=== PATIENT | female | born 1955 | race Caucasian/White ===

== ENCOUNTER 2017-08-21 07:30 | Day surgery (SDC) | payer MEDICAID ==
[2017-08-19 17:32] VITALS: BMI 29.2
[~2017-08-21 07:30] MED LIST: LACTATED RINGERS 1,000 ML IV SCH; LIDOCAINE 1% 20 ML VIAL (10MG/ML) FOR IV START INTRADERMA PRN
[2017-08-21 07:42] VITALS: RESP 18; TEMP 98
[2017-08-21] MEDS ORDERED: LACTATED RINGERS 1,000 ML IV ONE (07:43)
[2017-08-21] MEDS ORDERED: LIDOCAINE 1% 20 ML VIAL (10MG/ML) FOR IV START INTRADERMA ONE (07:44)
[2017-08-21] MEDS ORDERED: LIDOCAINE 1% INJ 10MG/ML (20 ML MDV) ONE (08:48)
[2017-08-21] MEDS ORDERED: PROPOFOL 10 MG/ML 20 ML VIAL IV ONE (08:48)
--- NOTE | 2017-08-21 09:04 | P.PCN ---
Date of Procedure: 08/21/17 Procedure(s) Performed: BRIEF HISTORY: Patient is a 62-year-old pleasant female, scheduled for an elective colonoscopy as a part of screening for colorectal neoplasia. PROCEDURE PERFORMED: Colonoscopy. PREOPERATIVE DIAGNOSIS: Screening for colon cancer. IV sedation per Anesthesia. PROCEDURE: After informed consent was obtained, the patient, was brought into the endoscopy unit. IV sedation was administered by Anesthesia under continuous monitoring. Digital rectal examination was normal. Initially the Olympus CF- 160 flexible video colonoscope was then inserted in the rectum, gradually advanced into the cecum without any difficulty. Careful examination was performed as the scope was gradually being withdrawn. Ileocecal valve and the appendiceal orifice were visualized and appeared normal. Prep was excellent. Mucosa of the cecum, ascending colon, transverse colon, descending colon, sigmoid colon, and rectum appeared normal. Retroflexion was performed in the rectum and no lesions were seen. The patient tolerated the procedure well. IMPRESSION: Normal-appearing colon from rectum to cecum with no evidence of colorectal neoplasia. RECOMMENDATIONS: Findings of this examination were discussed with the patient as well as her family. She was advised to have a repeat screening colonoscopy in 10 years.
[2017-08-21 09:31] VITALS: BP 131/74; PULSE 63
== END 2017-08-21 09:50 | disposition home or self-care (01) ==
LOC: ORWHC2ENDO 07:30
PROVIDERS: ATTEND Internal Medicine Gastroenterology
DX: Z12.11 Encounter for screening for malignant neoplasm of colon (principal); J45.909 Unspecified asthma, uncomplicated; K21.9 Gastro-esophageal reflux disease without esophagitis; Z79.01 Long term (current) use of anticoagulants; Z79.899 Other long term (current) drug therapy; Z88.2 Allergy status to sulfonamides
CPT/HCPCS: J2001; J2704; G0121

== ENCOUNTER → 2017-10-08 | Outpatient (CLI) | payer MEDICAID ==
[2017-10-08 07:56] LABS: Basophils # (A) 0.1 k/uL (0-0.2); Basophils % (A) 1 %; CH 26.9; Eosinophils # (A) 0.5 k/uL (0-0.7); Eosinophils % (A) 6 %; HCT 43.7 % (34.0-46.0); HDW 2.32; HGB 13.4 gm/dL (11.4-16.0); Hypochromasia Slight; Luc # (Auto) 0.13; Luc % (Auto) 2; Lymphocytes # (A) 2.8 k/uL (1.0-4.8); Lymphocytes % (A) 34 %; MCH 26.8 pg (25.0-35.0); MCHC 30.7 g/dL (31.0-37.0); MCV 87.4 fL (80.0-100.0); Mean Platelet Volume 7.4; Monocytes # (A) 0.7 k/uL (0-1.0); Monocytes % (A) 8 %; Neutrophils % (A) 49 %; WBC 8.1 k/uL (3.8-10.6); WBC (Perox) 7.95
[2017-10-08 08:08] LABS: ALT 32 U/L (9-52); AST 23 U/L (14-36); Alkaline Phosphatase 60 U/L (38-126); Anion Gap 8 mmol/L; Blood Urea Nitrogen 13 mg/dL (7-17); Calcium 9.2 mg/dL (8.4-10.2); Carbon Dioxide 28 mmol/L (22-30); Chloride 107 mmol/L (98-107); Cholesterol 159 mg/dL (<200); Glucose 81 mg/dL (74-99); HDL Cholesterol 59 mg/dL (40-60); Non-African American GFR(MDRD) >60 (>60 ml/min/1.73 sqM); Potassium 4.4 mmol/L (3.5-5.1); Sodium 143 mmol/L (137-145); Total Bilirubin 0.6 mg/dL (0.2-1.3); Total Protein 7.2 g/dL (6.3-8.2)
== END | disposition home or self-care (01) ==
LOC: LABWHC1 06:46
PROVIDERS: ATTEND Internal Medicine
DX: Z00.00 Encounter for general adult medical examination without abnormal findings (principal); E78.5 Hyperlipidemia, unspecified
CPT/HCPCS: 36415; 80053; 80061; 84439; 84443; 85025

== ENCOUNTER → 2018-11-11 | Outpatient (CLI) | payer MEDICAID ==
--- NOTE | 2018-11-12 11:20 | MM ---
Reason for exam: screening (asymptomatic). Last mammogram was performed 1 year and 3 months ago. History: Patient is postmenopausal. Benign right mammotome panel of the right breast, September 22, 2012. Took hormonal contraceptives for 5 years. Physical Findings: A clinical breast exam by your physician is recommended on an annual basis and results should be correlated with mammographic findings. MG 3D Screening Mammo W/Cad Bilateral CC and MLO view(s) were taken. Prior study comparison: August 20, 2017, bilateral MG 3d screening mammo w/cad. February 27, 2016, bilateral MG screening mammo w CAD. There are scattered fibroglandular densities. No significant changes when compared with prior studies. ASSESSMENT: Benign, BI-RAD 2 RECOMMENDATION: Routine screening mammogram of both breasts in 1 year.
--- NOTE | 2018-11-12 16:52 | BD ---
EXAMINATION TYPE: Axial Bone Density DATE OF EXAM: 11/11/2018 COMPARISON: NONE CLINICAL HISTORY: Height: 60 Weight: 159.4 FRAX RISK QUESTIONS: Alcohol (3 or more units per day): no Family History (Parent hip fracture): no Glucocorticoids (More than 3mos): no (Ex: prednisone, prednisolone, methylprednisolone, dexamethasone, and hydrocortisone). History of Fracture in Adulthood: no Secondary Osteoporosis: 1. Type 1 Diabetes: no 2. Hyperthyroidism: no 3. Menopause before 45: no 4. Malnutrition: no 5. Chronic liver disease: no Rheumatoid Arthritis: no Current Tobacco Use: no RISK FACTORS HISTORY OF: Family History of Osteoporosis: no Active: yes Diet low in dairy products/other sources of calcium: no Postmenopausal woman: age 56 MEDICATIONS: coumadin, singulair, simvastatin Additional History: EXAM MEASUREMENTS: Bone mineral densitometry was performed using the [employer] System. Bone mineral density as measured about the Lumbar spine is: ----- L1-L4(G/cm2): 1.011 T Score Values are as follows: ----- L2: -1.8 ----- L3: -1.0 ----- L4: -1.8 ----- L1-L4: -1.4 Bone mineral density has: decreased -5.8 % since study of: 08.30.2012 Bone mineral density about the R hip (g/cm2): 0.889 Bone mineral density about the L hip (g/cm2): T Score values are as follows: -----R Neck: -1.1 -----L Neck: -0.6 -----R Total: -0.4 -----L Total: -0.5 Bone mineral density has: decreased -3.7 % since study of: 08.30.2012 IMPRESSION: Osteopenia (T Score between -2.5 and -1). There is slightly increased risk of fracture and the patient may be considered for treatment. Re-Screen 2-5 years. NOTE: T-SCORE=SD OF THE YOUNG ADULT MEAN.
== END | disposition home or self-care (01) ==
LOC: RADBDWWP 16:15
PROVIDERS: ATTEND Obstetrics & Gynecology
DX: Z12.31 Encounter for screening mammogram for malignant neoplasm of breast (principal); M85.80 Other specified disorders of bone density and structure, unspecified site; Z78.0 Asymptomatic menopausal state
CPT/HCPCS: 77063; 77067; 77080

== ENCOUNTER 2019-03-11 18:24 | Emergency (ER) | payer MEDICAID ==
[2019-03-11 19:00] VITALS: TEMP 98.2
[2019-03-11] MEDS ORDERED: SODIUM CHLORIDE 0.9% 1,000 ML IV STA (19:33)
[2019-03-11 19:52] LABS: Basophils # (A) 0.1 k/uL (0-0.2); Basophils % (A) 1 %; Eosinophils # (A) 0.4 k/uL (0-0.7); Eosinophils % (A) 4 %; HCT 46.2 % (34.0-46.0); HGB 14.2 gm/dL (11.4-16.0); Lymphocytes # (A) 3.5 k/uL (1.0-4.8); Lymphocytes % (A) 32 %; MCH 27.3 pg (25.0-35.0); MCHC 30.7 g/dL (31.0-37.0); MCV 88.9 fL (80.0-100.0); Mean Platelet Volume 6.9; Monocytes # (A) 0.6 k/uL (0-1.0); Monocytes % (A) 6 %; Neutrophils % (A) 56 %; Platelet Count 435 k/uL (150-450); RDW 13.7 % (11.5-15.5); WBC 10.8 k/uL (3.8-10.6)
--- NOTE | 2019-03-11 20:00 | ED ---
Abdominal Pain HPI - General Source: patient Mode of arrival: ambulatory Limitations: no limitations <Rizwana Beck - Last Filed: 03/11/19 21:50> <Ina White - Last Filed: 03/12/19 06:38> - General Chief Complaint: Abdominal Pain Stated Complaint: ABDOMINAL PAIN Time Seen by Provider: 03/11/19 19:01 - History of Present Illness Initial Comments: 63-year-old female patient presents to the emergency department today for evaluation of lower abdominal pain. Patient states that over the last couple of days she has been having suprapubic cramping, dysuria, and frequency of urination. Patient states she was seen and evaluated at urgent care, states her urinalysis was negative for any evidence of infection. States that exam she has significant tenderness to the lower abdomen so she was urged to come to the emergency department for further evaluation. Patient denies any difficulty with bowel movements. Denies any fevers or chills. Denies any vomiting or diarrhea. States that she has had no abdominal surgeries in the past. Patient denies any recent rash, shortness breath, chest pain, nausea, vomiting, diarrhea, constipation, back pain, numbness, tingling, dizziness, weakness, headache, v isual changes, or any other complaints. (Rizwana Beck) - Related Data Home Medications Medication Instructions Recorded Confirmed Montelukast [Singulair] 10 mg PO HS 08/19/17 03/11/19 Warfarin [Coumadin] 5 mg PO SUMOTUWETHFR@1800 08/19/17 03/11/19 Warfarin [Coumadin] 7.5 mg PO SA@1800 08/19/17 03/11/19 Fexofenadine HCl [Peyton Allergy] 180 mg PO HS 03/11/19 03/11/19 Previous Rx's Medication Instructions Recorded Amoxic-Pot Clav 875-125Mg 1 tab PO Q12HR #20 tablet 03/11/19 [Augmentin 875-125] Allergies Allergy/AdvReac Type Severity Reaction Status Date / Time codeine AdvReac Nausea & Verified 03/11/19 20:28 Vomiting Sulfa (Sulfonamide AdvReac MAKES HER Verified 03/11/19 20:28 Antibiotics) JITTERY Review of Systems ROS Other: All systems not noted in ROS Statement are negative. <Rizwana Beck - Last Filed: 03/11/19 21:50> ROS Other: All systems not noted in ROS Statement are negative. <Alfonzo Whitessserena Pappas - Last Filed: 03/12/19 06:38> ROS Statement: Those systems with pertinent positive or pertinent negative responses have been documented in the HPI. Past Medical History Past Medical History: Asthma, Hyperlipidemia Additional Past Medical History / Comment(s): HX PE DVT History of Any Multi-Drug Resistant Organisms: None Reported Past Surgical History: No Surgical Hx Reported Past Psychological History: No Psychological Hx Reported Smoking Status: Former smoker Past Alcohol Use History: None Reported Past Drug Use History: None Reported <Rizwana Beck M - Last Filed: 03/11/19 21:50> General Exam Limitations: no limitations General appearance: alert, in no apparent distress, other (Physical well- developed, well-nourished adult female patient in no acute distress. Vital signs upon presentation are temperature 98.2F, pulse 74, respirations 20, blood pressure 119/65, pulse ox 98% on room air.) Eye exam: Present: normal appearance, PERRL, EOMI. Absent: scleral icterus, conjunctival injection, periorbital swelling ENT exam: Present: normal exam, normal oropharynx, mucous membranes moist Respiratory exam: Present: normal lung sounds bilaterally. Absent: respiratory distress, wheezes, rales, rhonchi, stridor Cardiovascular Exam: Present: regular rate, normal rhythm, normal heart sounds. Absent: systolic murmur, diastolic murmur, rubs, gallop, clicks GI/Abdominal exam: Present: soft, tenderness (Right lower and left lower quadrant tenderness), normal bowel sounds. Absent: distended, guarding, rebound, rigid Neurological exam: Present: alert, oriented X3, CN II-XII intact Psychiatric exam: Present: normal affect, normal mood Skin exam: Present: warm, dry, intact, normal color. Absent: rash <Rizwana Beck M - Last Filed: 03/11/19 21:50> Course Vital Signs 03/11/19 03/11/19 03/11/19 18:55 20:42 20:43 Temperature 98.2 F Pulse Rate 74 Respiratory 20 64 H Rate Blood Pressure 119/65 154/77 O2 Sat by Pulse 98 98 98 Oximetry 04/11/1703/11/19 03/11/19 20:50 21:10 21:45 Temperature Pulse Rate 77 Respiratory 18 16 Rate Blood Pressure 154/77 146/78 O2 Sat by Pulse 100 96 Oximetry Medical Decision Making - Lab Data Result diagrams: 03/11/19 19:39 03/11/19 19:39 - Radiology Data Radiology results: report reviewed, image reviewed <Rizwana Beck - Last Filed: 03/11/19 21:50> - Lab Data Result diagrams: 03/11/19 19:39 03/11/19 19:39 <Ina White - Last Filed: 03/12/19 06:38> - Medical Decision Making 63-year-old female patient presents to the emergency department today for evaluation of abdominal tenderness. Patient having urinary symptoms for the last couple of days and did present to urgent care today. Upon physical exam she had significant tenderness to the lower abdomen was sent here for further evaluation. Physical examination did reveal right lower and left lower quadrant tenderness including the suprapubic region. Labs reviewed and did reveal elevat ed white blood cell count at 10.8. A CT abdomen and pelvis was obtained with contrast didn't show evidence for mid sigmoid diverticulitis however mild at this time. Did discuss findings and results with the patient. Patient does feel comfortable being discharged home. She will be started on Augmentin. She is instructed to follow-up with her primary care physician for recheck in 1-2 days. Return parameters discussed in detail. She verbalizes understanding and agrees with this plan. (Rizwana Beck) I was available for consultation in the emergency department. The history and physical exam were done by the midlevel provider. I was consulted for this patient's care. I reviewed the case with the midlevel provider and based on their presentation of the patient, I agree with the assessment, medical decision making and plan of care as documented. (Ina White) - Lab Data Lab Results 03/11/19 03/11/19 03/11/19 Range/Units 19:39 19:39 19:39 WBC 10.8 H (3.8-10.6) k/uL RBC 5.20 (3.80-5.40) m/uL Hgb 14.2 (11.4-16.0) gm/dL Hct 46.2 H (34.0-46.0) % MCV 88.9 (80.0-100.0) fL MCH 27.3 (25.0-35.0) pg MCHC 30.7 L (31.0-37.0) g/dL RDW 13.7 (11.5-15.5) % Plt Count 435 (150-450) k/uL Neutrophils % 56 % Lymphocytes % 32 % Monocytes % 6 % Eosinophils % 4 % Basophils % 1 % Neutrophils # 6.0 (1.3-7.7) k/uL Lymphocytes # 3.5 (1.0-4.8) k/uL Monocytes # 0.6 (0-1.0) k/uL Eosinophils # 0.4 (0-0.7) k/uL Basophils # 0.1 (0-0.2) k/uL Sodium 139 (137-145) mmol/L Potassium 3.9 (3.5-5.1) mmol/L Chloride 104 (98-107) mmol/L Carbon Dioxide 27 (22-30) mmol/L Anion Gap 8 mmol/L BUN 13 (7-17) mg/dL Creatinine 0.53 (0.52-1.04) mg/dL Est GFR (CKD-EPI)AfAm >90 (>60 ml/min/1.73 sqM) Est GFR (CKD-EPI)NonAf >90 (>60 ml/min/1.73 sqM) Glucose 98 (74-99) mg/dL Plasma Lactic Acid Danny 0.9 (0.7-2.0) mmol/L Calcium 10.0 (8.4-10.2) mg/dL Total Bilirubin 0.7 (0.2-1.3) mg/dL AST 24 (14-36) U/L ALT 29 (9-52) U/L Alkaline Phosphatase 76 (38-126) U/L Total Protein 7.9 (6.3-8.2) g/dL Albumin 4.7 (3.5-5.0) g/dL Amylase 41 (30-110) U/L Lipase 85 (23-300) U/L Urine Color Urine Appearance (Clear) Urine pH (5.0-8.0) Ur Specific [place] (1.001-1.035) Urine Protein (Negative) Urine Glucose (UA) (Negative) Urine Ketones (Negative) Urine Blood (Negative) Urine Nitrite (Negative) Urine Bilirubin (Negative) Urine Urobilinogen (<2.0) mg/dL Ur Leukocyte Esterase (Negative) Urine WBC (0-5) /hpf Ur Squamous Epith Cells (0-4) /hpf Urine Mucus (None) /hpf 03/11/19 Range/Units 19:39 WBC (3.8-10.6) k/uL RBC (3.80-5.40) m/uL Hgb (11.4-16.0) gm/dL Hct (34.0-46.0) % MCV (80.0-100.0) fL MCH (25.0-35.0) pg MCHC (31.0-37.0) g/dL RDW (11.5-15.5) % Plt Count (150-450) k/uL Neutrophils % % Lymphocytes % % Monocytes % % Eosinophils % % Basophils % % Neutrophils # (1.3-7.7) k/uL Lymphocytes # (1.0-4.8) k/uL Monocytes # (0-1.0) k/uL Eosinophils # (0-0.7) k/uL Basophils # (0-0.2) k/uL Sodium (137-145) mmol/L Potassium (3.5-5.1) mmol/L Chloride (98-107) mmol/L Carbon Dioxide (22-30) mmol/L Anion Gap mmol/L BUN (7-17) mg/dL Creatinine (0.52-1.04) mg/dL Est GFR (CKD-EPI)AfAm (>60 ml/min/1.73 sqM) Est GFR (CKD-EPI)NonAf (>60 ml/min/1.73 sqM) Glucose (74-99) mg/dL Plasma Lactic Acid Danny (0.7-2.0) mmol/L Calcium (8.4-10.2) mg/dL Total Bilirubin (0.2-1.3) mg/dL AST (14-36) U/L ALT (9-52) U/L Alkaline Phosphatase (38-126) U/L Total Protein (6.3-8.2) g/dL Albumin (3.5-5.0) g/dL Amylase (30-110) U/L Lipase (23-300) U/L Urine Color Yellow Urine Appearance Clear (Clear) Urine pH 5.0 (5.0-8.0) Ur Specific [place] 1.014 (1.001-1.035) Urine Protein Negative (Negative) Urine Glucose (UA) Negative (Negative) Urine Ketones 1+ H (Negative) Urine Blood Negative (Negative) Urine Nitrite Negative (Negative) Urine Bilirubin Negative (Negative) Urine Urobilinogen <2.0 (<2.0) mg/dL Ur Leukocyte Esterase Small H (Negative) Urine WBC 10 H (0-5) /hpf Ur Squamous Epith Cells <1 (0-4) /hpf Urine Mucus Occasional H (None) /hpf - Radiology Data CT abdomen and pelvis with contrast was obtained. Report was reviewed in its entirety. Impression by Dr. Pace shows evidence of mild mid sigmoid diverticulitis. Normal appendix. (Rizwana Beck) Disposition Is patient prescribed a controlled substance at d/c from ED?: No Time of Disposition: 21:31 <Rizwana Beck - Last Filed: 03/11/19 21:50> <Ina White - Last Filed: 03/12/19 06:38> Clinical Impression: Diverticulitis Disposition: HOME SELF-CARE Condition: Good Instructions (If sedation given, give patient instructions): Diverticulitis (ED), Diverticulitis Diet (ED) Additional Instructions: Complete antibiotic prescriptions in full. Follow-up with your primary care physician for recheck in 1-2 days. Return to the emergency department immediately for any new, worsening, or concerning symptoms. Prescriptions: Amoxic-Pot Clav 875-125Mg [Augmentin 875-125] 1 tab PO Q12HR #20 tablet Referrals: Melchor Meek MD [Primary Care Provider] - 1-2 days
[2019-03-11 20:01] LABS: ALT 29 U/L (9-52); AST 24 U/L (14-36); Albumin 4.7 g/dL (3.5-5.0); Alkaline Phosphatase 76 U/L (38-126); Amylase 41 U/L (30-110); Anion Gap 8 mmol/L; Blood Urea Nitrogen 13 mg/dL (7-17); Carbon Dioxide 27 mmol/L (22-30); Chloride 104 mmol/L (98-107); Glucose 98 mg/dL (74-99); Lipase 85 U/L (23-300); Potassium 3.9 mmol/L (3.5-5.1); Sodium 139 mmol/L (137-145); Total Bilirubin 0.7 mg/dL (0.2-1.3); Total Protein 7.9 g/dL (6.3-8.2)
[2019-03-11 20:05] LABS: Appearance,Urine Clear (Clear); Bilirubin,Urine Negative (Negative); Blood,Urine Negative (Negative); Color,Urine Yellow; Glucose,Urine (UA) Negative (Negative); Ketones,Urine 1+ (Negative); Leukocyte Esterase,Urine Small (Negative); Mucus,Urine Occasional /hpf; Nitrite,Urine Negative (Negative); Protein,Urine Negative (Negative); Specific Gravity,Urine 1.014 (1.001-1.035); Squamous Epithelial Cell,Urine <1 /hpf (0-4); Urobilinogen,Urine <2.0 mg/dL (<2.0); WBC,Urine 10 /hpf (0-5)
--- NOTE | 2019-03-11 21:10 | CT ---
EXAMINATION TYPE: CT abdomen pelvis w con DATE OF EXAM: 03/11/2019 COMPARISON: 10/16/2011 HISTORY: Abdominal pain upon palpation CT DLP: 880 mGycm Automated exposure control for dose reduction was used. TECHNIQUE: Helical acquisition of images was performed from the lung bases through the pelvis. CONTRAST: Performed without Oral Contrast and with IV Contrast, patient injected with 100 mL of Isovue 300. FINDINGS: Lung bases are clear. There is no pleural effusion. Heart size is normal. There is no pericardial eff usion. Liver spleen pancreas stomach appear normal. Bile ducts are not dilated. Gallbladder appears n ormal. There is no adrenal mass. Kidneys show satisfactory contrast opacification. There is no hydronephrosi s. Bladder distends smoothly. There is no retroperitoneal adenopathy. Ureters are not dilated. Uterus is normal in size and contour. There is no evidence of a pelvic mass. There is fat stranding around the mid sigmoid colon. There are multiple sigmoid diverticula. The appe ndix appears normal. There is no sign of free air. There is no ascites. There is no dilated bowel. The bony structures jose ear intact. There is a minimal L4-5 degenerative spondylolisthesis. There is a broad-based posterior L5-S1 lumbar disc herniation. IMPRESSION: THERE IS EVIDENCE OF MILD MID SIGMOID DIVERTICULITIS. NORMAL APPENDIX.
[2019-03-11 21:14] VITALS: BP 146/78; RESP 16
[2019-03-11] MEDS ORDERED: AMOXIC-POT CLAV 875MG STARTER 2 EACH TABLET PO STA (21:31)
[2019-03-11 21:47] VITALS: PULSE 77
== END 2019-03-11 21:45 | disposition home or self-care (01) ==
LOC: EC 18:24
DX: K57.92 Diverticulitis of intestine, part unspecified, without perforation or abscess without bleeding (principal); D72.829 Elevated white blood cell count, unspecified; R30.0 Dysuria; R35.0 Frequency of micturition; J45.909 Unspecified asthma, uncomplicated; Z86.718 Personal history of other venous thrombosis and embolism; Z87.891 Personal history of nicotine dependence; Z86.711 Personal history of pulmonary embolism; Z79.01 Long term (current) use of anticoagulants; Z79.899 Other long term (current) drug therapy; Z88.5 Allergy status to narcotic agent; Z88.2 Allergy status to sulfonamides
CPT/HCPCS: 99284; 96360; 36415; 80053; 82150; 83605; 83690; 85025; 81001; 74177; Q9967

== ENCOUNTER 2019-09-25 09:30 | Emergency (ER) | payer MEDICAID ==
[2019-09-25] MEDS ORDERED: SODIUM CHLORIDE 0.9% 500 ML 500 ML IV STA ×2 (09:59→11:38)
[2019-09-25] MEDS ORDERED: METOCLOPRAMIDE 5 MG/ML 2 ML VIAL IVP STA (09:59)
[2019-09-25] MEDS ORDERED: MORPHINE SULFATE 4 MG/ML SYRINGE IV STA (09:59)
--- NOTE | 2019-09-25 10:04 | ED ---
General Adult HPI - General Chief complaint: Headache Stated complaint: Headache Time Seen by Provider: 09/25/19 09:50 Source: patient, family, RN notes reviewed Mode of arrival: ambulatory Limitations: no limitations - History of Present Illness Initial comments: Patient is a pleasant [age]-year-old female presenting to the emergency Department with headache. Onset of symptoms was yesterday. Rate was gradual onset and has been aggressively worsened since that time. Headache is starting to become severe. Patient does have some occasional migraine headaches however usually they're not very severe , and more frontal. This headache is more left posterior. Patient has mild nausea at times. Patient has mild photophobia times. No visual change. No trauma. Patient did develop a rash 5 or 6 days ago. Patient did see her doctor 3 days ago and was started on Valtrex with diagnosis of shingles. Area affected is left chest and does wrap around posteriorly to the left back. No rash involved in the neck or scalp. Patient states rash is burning and somewhat painful. No fevers. Patient states she is having some muscle spasms in the left back that seemed to be radiating up to the head and patient questions if this is causing her headache. - Related Data Home Medications Medication Instructions Recorded Confirmed Montelukast [Singulair] 10 mg PO HS 08/19/17 09/25/19 Warfarin [Coumadin] 5 mg PO SUTUTHFR@1800 08/19/17 09/25/19 Warfarin [Coumadin] 7.5 mg PO MOWESA@1800 08/19/17 09/25/19 Fexofenadine HCl [Peyton Allergy] 180 mg PO HS 03/11/19 09/25/19 Acetaminophen Tab [Tylenol Tab] 650 mg PO Q4H PRN 09/25/19 09/25/19 Hydrocortisone Cream 1 applic TOPICAL BID PRN 09/25/19 09/25/19 [Hydrocortisone 1% Cream] Simvastatin [Zocor] 10 mg PO HS 09/25/19 09/25/19 valACYclovir HCL [Valtrex] 1,000 mg PO TID 09/25/19 09/25/19 Previous Rx's Medication Instructions Recorded predniSONE 20 mg PO BID #10 tab 09/25/19 Allergies Allergy/AdvReac Type Severity Reaction Status Date / Time codeine AdvReac Nausea & Verified 09/25/19 10:09 Vomiting Sulfa (Sulfonamide AdvReac MAKES HER Verified 09/25/19 10:09 Antibiotics) OLEG Review of Systems ROS Statement: Those systems with pertinent positive or pertinent negative responses have been documented in the HPI. ROS Other: All systems not noted in ROS Statement are negative. Constitutional: Denies: fever Eyes: Reports: as per HPI ENT: Denies: ear pain Respiratory: Denies: cough, dyspnea Cardiovascular: Denies: chest pain Endocrine: Denies: fatigue Gastrointestinal: Denies: abdominal pain Genitourinary: Denies: dysuria Musculoskeletal: Reports: as per HPI Skin: Reports: as per HPI, rash Neurological: Reports: as per HPI, headache. Denies: weakness, confusion Past Medical History Past Medical History: Asthma, Hyperlipidemia Additional Past Medical History / Comment(s): HX PE DVT History of Any Multi-Drug Resistant Organisms: None Reported Past Surgical History: No Surgical Hx Reported Past Psychological History: No Psychological Hx Reported Smoking Status: Former smoker Past Alcohol Use History: None Reported Past Drug Use History: None Reported General Exam Limitations: no limitations General appearance: alert, in no apparent distress Head exam: Present: atraumatic, normocephalic, other (No tenderness over the temporal artery) Eye exam: Present: normal appearance, PERRL, EOMI. Absent: nystagmus ENT exam: Present: normal oropharynx Neck exam: Present: normal inspection. Absent: tenderness, meningismus Respiratory exam: Present: normal lung sounds bilaterally Cardiovascular Exam: Present: regular rate, normal rhythm GI/Abdominal exam: Present: soft. Absent: tenderness Extremities exam: Present: normal inspection Neurological exam: Present: alert, oriented X3, CN II-XII intact. Absent: motor sensory deficit Expanded Neurological exam: Present: protecting the airway Patient oriented to: Present: person, place, time Speech: Present: fluid speech Cranial nerves: EOM's Intact: Normal, Facial Sensation: Normal Sensory exam: Upper Extremity Light Touch: Normal, Lower Extremity Light Touch: Normal Motor strength exam: RUE: 5, LUE: 5, RLE: 5, LLE: 5 Eye Response: (4) open spontaneously Motor Response: (6) obeys commands Verbal Response: (5) oriented Psychiatric exam: Present: normal affect, normal mood Skin exam: Present: rash (Left lateral breast wrapping around to left thoracic back with erythema and crusting consistent with diagnosis of shingles.), other (No evidence of rash or shingles near the neck or any portion of the scalp her head or ears or eyes.) Course Vital Signs 09/25/19 09:34 Temperature 98.4 F Pulse Rate 98 Respiratory 20 Rate Blood Pressure 125/82 O2 Sat by Pulse 96 Oximetry Medical Decision Making - Medical Decision Making Patient was reevaluated early and still had discomfort. Patient right additional medication and again reevaluated. Patient states symptoms are improving and discomfort is tolerable. Patient is comfortable with discharge home. Patient updated on results and need for close follow-up with primary care physician. Patient does request a steroid prescription. - Lab Data Result diagrams: 09/25/19 10:09/25/19 10: Lab Results 09/25/19 09/25/19 09/25/19 Range/Units 10: 10: 10: WBC 6.7 (3.8-10.6) k/uL RBC 4.96 (3.80-5.40) m/uL Hgb 13.4 (11.4-16.0) gm/dL Hct 42.2 (34.0-46.0) % MCV 85.1 (80.0-100.0) fL MCH 27.0 (25.0-35.0) pg MCHC 31.7 (31.0-37.0) g/dL RDW 13.3 (11.5-15.5) % Plt Count 440 (150-450) k/uL Neutrophils % 52 % Lymphocytes % 32 % Monocytes % 6 % Eosinophils % 6 % Basophils % 1 % Neutrophils # 3.5 (1.3-7.7) k/uL Lymphocytes # 2.1 (1.0-4.8) k/uL Monocytes # 0.4 (0-1.0) k/uL Eosinophils # 0.4 (0-0.7) k/uL Basophils # 0.1 (0-0.2) k/uL ESR 25 H (0-20) mm/hr PT 15.1 H (9.0-12.0) sec INR 1.5 H (<1.2) APTT 35.9 H (22.0-30.0) sec Sodium 142 (137-145) mmol/L Potassium 4.2 (3.5-5.1) mmol/L Chloride 106 (98-107) mmol/L Carbon Dioxide 26 (22-30) mmol/L Anion Gap 10 mmol/L BUN 14 (7-17) mg/dL Creatinine 0.51 L (0.52-1.04) mg/dL Est GFR (CKD-EPI)AfAm >90 (>60 ml/min/1.73 sqM) Est GFR (CKD-EPI)NonAf >90 (>60 ml/min/1.73 sqM) Glucose 111 H (74-99) mg/dL Calcium 9.3 (8.4-10.2) mg/dL Total Bilirubin 0.4 (0.2-1.3) mg/dL AST 24 (14-36) U/L ALT 29 (9-52) U/L Alkaline Phosphatase 55 (38-126) U/L Total Protein 7.3 (6.3-8.2) g/dL Albumin 3.8 (3.5-5.0) g/dL - Radiology Data Radiology results: image reviewed (Computed tomography scan the brain shows no acute process) Disposition Clinical Impression: Headache, Shingles Disposition: HOME SELF-CARE Condition: Stable Instructions (If sedation given, give patient instructions): Acute Headache (ED), Shingles (ED) Additional Instructions: Please follow-up with primary care physician in the next day or 2 for recheck. Return for headache, confusion, weakness, fevers, worsening or changing symptoms or other concerns. Prescription has been sent to [facility] on Prescriptions: predniSONE 20 mg PO BID #10 tab Is patient prescribed a controlled substance at d/c from ED?: No Referrals: Melchor Meek MD [Primary Care Provider] - 1-2 days Time of Disposition: 13:22
[2019-09-25 10:48] LABS: Basophils # (A) 0.1 k/uL (0-0.2); Basophils % (A) 1 %; Eosinophils # (A) 0.4 k/uL (0-0.7); Eosinophils % (A) 6 %; HCT 42.2 % (34.0-46.0); HGB 13.4 gm/dL (11.4-16.0); Lymphocytes # (A) 2.1 k/uL (1.0-4.8); Lymphocytes % (A) 32 %; MCHC 31.7 g/dL (31.0-37.0); MCV 85.1 fL (80.0-100.0); Mean Platelet Volume 6.1; Monocytes # (A) 0.4 k/uL (0-1.0); Monocytes % (A) 6 %; Neutrophils # (A) 3.5 k/uL (1.3-7.7); Neutrophils % (A) 52 %; Platelet Count 440 k/uL (150-450); RBC 4.96 m/uL (3.80-5.40); RDW 13.3 % (11.5-15.5); WBC 6.7 k/uL (3.8-10.6)
[2019-09-25 10:50] LABS: ALT 29 U/L (9-52); AST 24 U/L (14-36); African American GFR (CKD) >90 (>60 ml/min/1.73 sqM); Albumin 3.8 g/dL (3.5-5.0); Alkaline Phosphatase 55 U/L (38-126); Anion Gap 10 mmol/L; Blood Urea Nitrogen 14 mg/dL (7-17); Calcium 9.3 mg/dL (8.4-10.2); Carbon Dioxide 26 mmol/L (22-30); Chloride 106 mmol/L (98-107); Glucose 111 mg/dL (74-99); INR 1.5 (<1.2); Partial Thromboplastin Time 35.9 sec (22.0-30.0); Potassium 4.2 mmol/L (3.5-5.1); Prothrombin Time 15.1 sec (9.0-12.0); Sodium 142 mmol/L (137-145); Total Bilirubin 0.4 mg/dL (0.2-1.3); Total Protein 7.3 g/dL (6.3-8.2)
--- NOTE | 2019-09-25 11:03 | CT ---
EXAMINATION TYPE: CT brain wo con DATE OF EXAM: 09/25/2019 COMPARISON: NONE HISTORY: Severe AGUIRRE CT DLP: 1058.4 mGycm Automated exposure control for dose reduction was used. FINDINGS: Central structures are midline. There is no evidence of hydrocephalus. No acute focal lesion, mass ef fect or midline shift seen. I do not see evidence blood. Visualized portions of the paranasal sinuses and mastoids are clear. The bony calvarium is intact. IMPRESSION: NO ACUTE INTRACRANIAL ABNORMALITY.
[2019-09-25 11:36] LABS: Erythrocyte Sedimentation Rate 25 mm/hr (0-20)
[2019-09-25] MEDS ORDERED: diphenhydrAMINE 50 MG/ML 1 ML VIAL IVP STA (11:38)
[2019-09-25] MEDS ORDERED: methylPREDNISolone SOD SUCCI 125 MG/2 ML VIAL IV STA (11:39)
[2019-09-25] MEDS ORDERED: traMADol 50 MG STARTER PACK 3 TAB BTL PO STA (13:21)
[2019-09-25 13:46] VITALS: BP 110/62; PULSE 69; RESP 18; TEMP 98.3
== END 2019-09-25 13:44 | disposition home or self-care (01) ==
LOC: EC 09:30
DX: B02.9 Zoster without complications (principal); R51 Headache; R11.0 Nausea; J45.909 Unspecified asthma, uncomplicated; E78.5 Hyperlipidemia, unspecified; Z79.01 Long term (current) use of anticoagulants; Z79.899 Other long term (current) drug therapy; Z88.2 Allergy status to sulfonamides; Z88.5 Allergy status to narcotic agent; Z87.891 Personal history of nicotine dependence; Z86.718 Personal history of other venous thrombosis and embolism; Z86.711 Personal history of pulmonary embolism
CPT/HCPCS: 99284; 96374; 96375 ×3; 96361; 36415; 80053; 85652; 85025; 85610; 85730; 70450; J2270; J1200; J2765; J2930

== ENCOUNTER → 2019-11-05 | Outpatient (CLI) | payer MEDICAID ==
[2019-11-05 10:13] LABS: Basophils # (A) 0.1 k/uL (0-0.2); Basophils % (A) 1 %; Eosinophils # (A) 0.2 k/uL (0-0.7); Eosinophils % (A) 2 %; HCT 41.5 % (34.0-46.0); HGB 13.4 gm/dL (11.4-16.0); Lymphocytes # (A) 2.5 k/uL (1.0-4.8); Lymphocytes % (A) 32 %; MCH 27.9 pg (25.0-35.0); MCHC 32.1 g/dL (31.0-37.0); MCV 86.8 fL (80.0-100.0); Mean Platelet Volume 6.4; Monocytes # (A) 0.5 k/uL (0-1.0); Monocytes % (A) 6 %; Neutrophils # (A) 4.5 k/uL (1.3-7.7); Neutrophils % (A) 57 %; Platelet Count 502 k/uL (150-450); RBC 4.78 m/uL (3.80-5.40); RDW 14.5 % (11.5-15.5); WBC 7.9 k/uL (3.8-10.6)
[2019-11-05 10:23] LABS: INR 2.3 (<1.2); Prothrombin Time 22.1 sec (9.0-12.0)
[2019-11-05 17:02] LABS: African American GFR (CKD) 112.4 (60.0-200.0); Albumin 4.2 g/dL (3.80-4.90); Albumin/Globulin Ratio 1.91 (1.60-3.17); Anion Gap 7.6 mmol/L (4.00-12.00); Carbon Dioxide 25.4 mmol/L (21.6-31.8); Chol/HDL Ratio 2.72; Globulin 2.2 g/dL (1.6-3.3); LDL Cholesterol,Calculated 74.6 mg/dL (0.0-131.0); Potassium 4.3 mmol/L (3.5-5.5); Total Bilirubin 0.7 mg/dL (0.3-1.2); Total Protein 6.4 g/dL (6.2-8.2); VLDL Calculation 16.4 mg/dL (5.00-40.00)
[2019-11-05 17:20] LABS: T4, Free (Free Thyroxine) 0.8 ng/dL (0.80-1.80)
== END | disposition home or self-care (01) ==
LOC: LABWHC1 09:11
PROVIDERS: ATTEND Internal Medicine
DX: Z00.00 Encounter for general adult medical examination without abnormal findings (principal)
CPT/HCPCS: 36415; 80053; 80061; 84439; 84443; 85025; 85610

== ENCOUNTER → 2020-01-16 | Outpatient (CLI) | payer MEDICAID ==
--- NOTE | 2020-01-18 09:31 | MM ---
Reason for exam: screening (asymptomatic). Last mammogram was performed 1 year and 2 months ago. History: Patient is postmenopausal. Benign right mammotome panel of the right breast, September 22, 2012. Took hormonal contraceptives for 5 years beginning at age 24. Physical Findings: A clinical breast exam by your physician is recommended on an annual basis and results should be correlated with mammographic findings. MG 3D Screening Mammo W/Cad Bilateral CC and MLO view(s) were taken. Prior study comparison: November 11, 2018, bilateral MG 3d screening mammo w/cad. August 20, 2017, bilateral MG 3d screening mammo w/cad. There are scattered fibroglandular densities. Previous mammotome biopsy in the right breast. There is chronic nodularity in the right breast. No significant changes when compared with prior studies. ASSESSMENT: Negative, BI-RAD 1 RECOMMENDATION: Routine screening mammogram of both breasts in 1 year.
== END | disposition home or self-care (01) ==
LOC: RADMAMWWP 16:47
PROVIDERS: ATTEND Obstetrics & Gynecology
DX: Z12.31 Encounter for screening mammogram for malignant neoplasm of breast (principal)
CPT/HCPCS: 77063; 77067

== ENCOUNTER → 2020-01-20 | Outpatient (CLI) | payer MEDICAID ==
[2020-01-20 17:20] LABS: Prothrombin Time 19.5 sec (9.0-12.0)
== END | disposition home or self-care (01) ==
LOC: LABWHC1 16:33
PROVIDERS: ATTEND Internal Medicine
DX: Z51.81 Encounter for therapeutic drug level monitoring (principal); Z79.01 Long term (current) use of anticoagulants
CPT/HCPCS: 36415; 85610

== ENCOUNTER 2020-07-29 12:53 | Inpatient (IN) | payer OTHER, MEDICAID ==
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
[2020-07-29] MEDS ORDERED: fentaNYL (PF) 50 MCG/ML 2 ML AMP IVP STA (13:33)
[2020-07-29 14:01] LABS: Basophils # (A) 0.1 k/uL (0-0.2); Basophils % (A) 1 %; Eosinophils # (A) 0.4 k/uL (0-0.7); Eosinophils % (A) 3 %; HCT 44.3 % (34.0-46.0); HGB 13.6 gm/dL (11.4-16.0); Lymphocytes # (A) 3.3 k/uL (1.0-4.8); Lymphocytes % (A) 26 %; MCH 26.7 pg (25.0-35.0); MCHC 30.6 g/dL (31.0-37.0); MCV 87.3 fL (80.0-100.0); Monocytes # (A) 0.8 k/uL (0-1.0); Monocytes % (A) 6 %; Neutrophils % (A) 63 %; Platelet Count 461 k/uL (150-450); RBC 5.07 m/uL (3.80-5.40); RDW 13.4 % (11.5-15.5); WBC 12.8 k/uL (3.8-10.6)
[2020-07-29 14:07] LABS: Amorphous Sediment,Urine Rare /hpf; Appearance,Urine Clear (Clear); Bilirubin,Urine Negative (Negative); Blood,Urine Negative (Negative); Color,Urine Yellow; Glucose,Urine (UA) Negative (Negative); Hyaline Casts,Urine 18 /lpf (0-2); Ketones,Urine Negative (Negative); Leukocyte Esterase,Urine Trace (Negative); Mucus,Urine Few /hpf; Nitrite,Urine Negative (Negative); Protein,Urine Negative (Negative); Specific Gravity,Urine 1.021 (1.001-1.035); Squamous Epithelial Cell,Urine <1 /hpf (0-4); WBC,Urine 7 /hpf (0-5)
[2020-07-29 14:09] LABS: INR 2.7 (<1.2); Partial Thromboplastin Time 30.6 sec (22.0-30.0)
[2020-07-29 14:10] LABS: ALT 24 U/L (4-34); AST 33 U/L (14-36); African American GFR (CKD) >90 (>60 ml/min/1.73 sqM); Albumin 4.6 g/dL (3.5-5.0); Alcohol <10 mg/dL; Alkaline Phosphatase 70 U/L (38-126); Anion Gap 10 mmol/L; Blood Urea Nitrogen 16 mg/dL (7-17); Calcium 9.8 mg/dL (8.4-10.2); Carbon Dioxide 26 mmol/L (22-30); Chloride 105 mmol/L (98-107); Glucose 119 mg/dL (74-99); Non-African American GFR(CKD) >90 (>60 ml/min/1.73 sqM); Potassium 3.9 mmol/L (3.5-5.1); Sodium 141 mmol/L (137-145); Total Bilirubin 0.5 mg/dL (0.2-1.3); Total Protein 7.6 g/dL (6.3-8.2)
[2020-07-29 14:11] LABS: Amphetamine Screen,Urine Not Detected (NotDetected); Barbiturate Screen,Urine Not Detected (NotDetected); Benzodiazepines Screen,Urine Not Detected (NotDetected); Cocaine Screen,Urine Not Detected (NotDetected); Methadone Screen, Urine Not Detected (NotDetected); Opiate Screen,Urine Not Detected (NotDetected); Oxycodone Screen, Urine Not Detected (NotDetected); Phencyclidine Screen,Urine Not Detected (NotDetected); Tricyclic Antidepressant,Urine Not Detected (NotDetected); Urn Cannabinoid Scrn Not Detected (NotDetected)
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
[2020-07-29] MEDS ORDERED: NALOXONE 0.4 MG/ML 1 ML VIAL IV PRN (15:00)
[2020-07-29] MEDS ORDERED: ACETAMINOPHEN TAB 325 MG TAB PO PRN (15:00)
[2020-07-29] MEDS ORDERED: HYDROmorphone 0.5 MG/0.5 ML SYRINGE IVP PRN (15:00)
[2020-07-29] MEDS ORDERED: ONDANSETRON 4 MG/2 ML VIAL IVP STA (16:20)
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
[2020-07-29] MEDS ORDERED: traMADol 50 MG TAB PO PRN (17:14)
[2020-07-29] MEDS ORDERED: ONDANSETRON 4 MG/2 ML VIAL IVP PRN (17:15)
[2020-07-29] MEDS: ACETAMINOPHEN TAB 500 MG TAB PO PRN (20:59)
[2020-07-29] MEDS ORDERED: LORATADINE 10 MG TAB PO SCH (21:00)
[2020-07-29] MEDS ORDERED: MONTELUKAST 10 MG TAB PO SCH (21:00)
[2020-07-29] MEDS ORDERED: ATORVASTATIN 10 MG TAB PO SCH (21:00)
[2020-07-29 21:17] LABS: HCT 42.4 % (34.0-46.0); HGB 13.3 gm/dL (11.4-16.0); Hypochromasia Slight; MCH 27.7 pg (25.0-35.0); MCHC 31.4 g/dL (31.0-37.0); MCV 88.4 fL (80.0-100.0); Platelet Count 463 k/uL (150-450); RBC 4.79 m/uL (3.80-5.40); RDW 13.3 % (11.5-15.5); WBC 16.3 k/uL (3.8-10.6)
[2020-07-30] MEDS: ACETAMINOPHEN TAB 500 MG TAB PO PRN (04:33)
[2020-07-30 04:35] VITALS: RESP 18
[2020-07-30 07:34] LABS: Basophils % (A) 0 %; Eosinophils # (A) 0.1 k/uL (0-0.7); Eosinophils % (A) 0 %; HCT 38.7 % (34.0-46.0); Lymphocytes # (A) 2.9 k/uL (1.0-4.8); Lymphocytes % (A) 24 %; MCH 27.3 pg (25.0-35.0); MCHC 31.1 g/dL (31.0-37.0); MCV 87.8 fL (80.0-100.0); Mean Platelet Volume 7.5; Monocytes # (A) 1.1 k/uL (0-1.0); Monocytes % (A) 9 %; Neutrophils % (A) 65 %; Platelet Count 405 k/uL (150-450); RBC 4.41 m/uL (3.80-5.40); RDW 13.6 % (11.5-15.5); WBC 12.3 k/uL (3.8-10.6)
[2020-07-30 07:52] LABS: INR 2.5 (<1.2); Prothrombin Time 24.7 sec (9.0-12.0)
[2020-07-30 08:04] LABS: African American GFR (CKD) >90 (>60 ml/min/1.73 sqM); Anion Gap 10 mmol/L; Blood Urea Nitrogen 17 mg/dL (7-17); Calcium 8.9 mg/dL (8.4-10.2); Carbon Dioxide 25 mmol/L (22-30); Chloride 102 mmol/L (98-107); Glucose 107 mg/dL (74-99); Non-African American GFR(CKD) >90 (>60 ml/min/1.73 sqM); Potassium 4.3 mmol/L (3.5-5.1); Sodium 137 mmol/L (137-145)
[2020-07-30] MEDS ORDERED: HEPARIN SODIUM,PORCINE 5,000 UNIT/ML 1 ML VIAL SQ SCH (09:00)
[2020-07-30 09:16] VITALS: TEMP 98.5
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
[2020-07-30] MEDS ORDERED: ACETAMINOPHEN TAB 325 MG TAB PO SCH (12:00)
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
[2020-07-30 16:09] VITALS: BP 106/69; PULSE 72
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
== END 2020-07-30 17:11 | disposition home or self-care (01) | DRG 565 ==
LOC: EC 12:53 → 3SCARD 15:00
PROVIDERS: ADMIT Surgery Plastic and Reconstructive Surgery; ATTEND Surgery Plastic and Reconstructive Surgery
DX: S22.20XA Unspecified fracture of sternum, initial encounter for closed fracture (principal); S26.91XA Contusion of heart, unspecified with or without hemopericardium, initial encounter; S20.02XA Contusion of left breast, initial encounter; E78.5 Hyperlipidemia, unspecified; R79.1 Abnormal coagulation profile; R16.2 Hepatomegaly with splenomegaly, not elsewhere classified; E66.9 Obesity, unspecified; Z68.34 Body mass index [BMI] 34.0-34.9, adult; T45.515A Adverse effect of anticoagulants, initial encounter; I08.1 Rheumatic disorders of both mitral and tricuspid valves; J45.909 Unspecified asthma, uncomplicated; J44.9 Chronic obstructive pulmonary disease, unspecified; M16.0 Bilateral primary osteoarthritis of hip; R79.89 Other specified abnormal findings of blood chemistry; D72.829 Elevated white blood cell count, unspecified; Z86.718 Personal history of other venous thrombosis and embolism; Z86.711 Personal history of pulmonary embolism; Z87.891 Personal history of nicotine dependence; V43.62XA Car passenger injured in collision with other type car in traffic accident, initial encounter; Y92.410 Unspecified street and highway as the place of occurrence of the external cause; Z82.0 Family history of epilepsy and other diseases of the nervous system; Z79.01 Long term (current) use of anticoagulants; Z79.899 Other long term (current) drug therapy; Z79.52 Long term (current) use of systemic steroids; Z88.5 Allergy status to narcotic agent; Z88.2 Allergy status to sulfonamides; Z82.49 Family history of ischemic heart disease and other diseases of the circulatory system; Z80.42 Family history of malignant neoplasm of prostate
CPT/HCPCS: 36415; 70450; 71045; 71260; 72125; 72170; 74177; 80048; 80053; 80306; 80320; 81001; 84484; 85025; 85027; 85610; 85730; 86850; 86900; 86901; 93005; 93306; 96374; 96375; 99291

== ENCOUNTER → 2021-01-25 | Outpatient (CLI) | payer MEDICAID, OTHER ==
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
== END | disposition home or self-care (01) ==
LOC: RADMAMWWP 16:44
PROVIDERS: ATTEND Surgery
DX: Z12.31 Encounter for screening mammogram for malignant neoplasm of breast (principal); R92.8 Other abnormal and inconclusive findings on diagnostic imaging of breast
CPT/HCPCS: 77063; 77067

== ENCOUNTER → 2021-02-05 | Outpatient (CLI) | payer MEDICAID, OTHER ==
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
== END ==
LOC: RADUSWWP 13:35
PROVIDERS: ATTEND Surgery
DX: Z78.0 Asymptomatic menopausal state (principal)

== ENCOUNTER → 2021-05-02 | Outpatient (CLI) | payer MEDICAID, OTHER ==
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
== END | disposition home or self-care (01) ==
LOC: RADUSWWP 14:57
PROVIDERS: ATTEND Surgery
DX: N60.02 Solitary cyst of left breast (principal); Z78.0 Asymptomatic menopausal state

== ENCOUNTER → 2021-07-13 | Outpatient (CLI) | payer MEDICAID ==
[2021-07-13 11:43] LABS: Basophils # (A) 0.08 X 10*3/uL (0.00-0.10); Basophils % (A) 0.9 %; Eosinophils # (A) 0.27 X 10*3/uL (0.04-0.35); Eosinophils % (A) 3.1 %; HCT 43.5 % (37.2-46.3); HGB 13.4 g/dL (12.0-15.0); Lymphocytes # (A) 3.06 X 10*3/uL (0.90-5.00); Lymphocytes % (A) 35.5 %; MCH 28.2 pg (27.0-32.0); MCHC 30.8 g/dL (32.0-37.0); MCV 91.6 fL (80.0-97.0); Mean Platelet Volume 9.9 fL (9.5-12.2); Monocytes # (A) 0.78 X 10*3/uL (0.20-1.00); Monocytes % (A) 9.1 %; Neutrophils # (A) 4.39 X 10*3/uL (1.80-7.70); Neutrophils % (A) 51.1 %; Platelet Count 478 X 10*3/uL (140-440); RBC 4.75 X 10*6/uL (4.10-5.20); RDW 12.9 % (11.5-14.5); WBC 8.61 X 10*3/uL (4.50-10.00)
[2021-07-13 12:14] LABS: African American GFR (CKD) 105.4 (60.0-200.0); Albumin 4.3 g/dL (3.80-4.90); Albumin/Globulin Ratio 1.54 (1.60-3.17); Anion Gap 6.9 mmol/L (4.00-12.00); BUN/Creat Ratio 17.14 Ratio (12.00-20.00); Calcium 9.3 mg/dL (8.7-10.3); Carbon Dioxide 28.1 mmol/L (21.6-31.8); Chol/HDL Ratio 3.07; Globulin 2.8 g/dL (1.6-3.3); LDL Cholesterol,Calculated 69.4 mg/dL (0.0-131.0); Non-African American GFR(CKD) 90.9 (60.0-200.0); Potassium 4.4 mmol/L (3.5-5.5); Total Bilirubin 0.9 mg/dL (0.2-1.2); Total Protein 7.1 g/dL (6.2-8.2); VLDL Calculation 25.6 mg/dL (5.00-40.00)
== END | disposition home or self-care (01) ==
LOC: LABWHC1 08:21
PROVIDERS: ATTEND Internal Medicine
DX: Z00.00 Encounter for general adult medical examination without abnormal findings (principal)
CPT/HCPCS: 36415; 80053; 80061; 84439; 84443; 85025

== ENCOUNTER → 2021-08-09 | Outpatient (CLI) | payer MEDICAID ==
--- NOTE | 2021-08-12 09:02 | USB ---
Reason for exam: clinical finding. History: Patient is postmenopausal. Benign right mammotome panel of the right breast, September 22, 2012. Took hormonal contraceptives for 5 years beginning at age 24. Indicated problem(s): palpable abnormality, skin thickening or retraction, and lump or thickening in the left breast. Physical Findings: Nurse Summary: discolored area, firm (nurse dw). US Breast Limited LT Left limited breast ultrasound including focal area of concern, retroareolar and axilla demonstrates a 3.6 x 3.8cm shadowing trauma location at 11-2 o'clock, smaller in size since 02/05/21, a 0.5 x 0.5 x 0.4cm cystic lesion at 9 o'clock, a 0.7 x 0.6 x 0.7cm mixed lesion at 10 o'clock and a 0.5 x 0.5 x 0.4cm mixed lesion at the posterior nipple. These results were verbally communicated with the patient and result sheet given to the patient on 08/09/21. ASSESSMENT: Probably benign, BI-RAD 3 RECOMMENDATION: Follow-up diagnostic mammogram of both breasts in 6 months. Ultrasound of the left breast in 6 months. Manage patient on a clinical basis.
== END | disposition home or self-care (01) ==
LOC: RADUSWWP 14:09
PROVIDERS: ATTEND Surgery
DX: N60.02 Solitary cyst of left breast (principal); Z78.0 Asymptomatic menopausal state; Z79.3 Long term (current) use of hormonal contraceptives

== ENCOUNTER → 2021-11-25 | Outpatient (CLI) | payer MEDICAID, OTHER | END | disposition home or self-care (01) | LOC: LABWHC1 10:58 | PROVIDERS: ATTEND Emergency Medicine | DX: Z20.822 Contact with and (suspected) exposure to COVID-19 (principal) | CPT/HCPCS: 87635 ==

== ENCOUNTER → 2021-11-26 | Outpatient (CLI) | payer MEDICAID, OTHER | END | disposition home or self-care (01) | LOC: LABWHC1 11:29 | PROVIDERS: ATTEND Emergency Medicine | DX: Z20.822 Contact with and (suspected) exposure to COVID-19 (principal) | CPT/HCPCS: 87635 ==

== ENCOUNTER → 2022-01-09 | Outpatient (CLI) | payer MEDICAID ==
--- NOTE | 2022-01-09 12:19 | MM ---
Reason for exam: additional evaluation requested from prior study. Last mammogram was performed 11 months ago. History: Patient is postmenopausal. Benign right mammotome panel of the right breast, September 22, 2012. Took hormonal contraceptives for 5 years beginning at age 24. Physical Findings: Nurse did not find any significant physical abnormalities on exam. MG 3D Diag Mammo W/Cad ERNESTINA Bilateral CC and MLO view(s) were taken. LM with magnification and CC with magnification view(s) were taken of the left breast. Prior study comparison: January 25, 2021, bilateral MG 3d screening mammo w/cad. January 16, 2020, bilateral MG 3d screening mammo w/cad. The breast tissue is heterogeneously dense. This may lower the sensitivity of mammography. Previous mammotome biopsy in the right breast. Continued diffuse increased trabecular thickening left breast. Stable medial low density left nodularity. New regional and grouped calcifications on the left appear heterogeneous. These results were verbally communicated with the patient and result sheet given to the patient on 01/09/22. ASSESSMENT: Incomplete: need additional imaging evaluation, BI-RAD 0 RECOMMENDATION: Ultrasound of the left breast.
--- NOTE | 2022-01-09 12:24 | USB ---
Reason for exam: additional evaluation requested from abnormal screening. History: Patient is postmenopausal. Benign right mammotome panel of the right breast, September 22, 2012. Took hormonal contraceptives for 5 years beginning at age 24. US Breast Limited LT Left limited breast ultrasound including focal area of concern, retroareolar and axilla demonstrates a 0.6 x 0.7 x 0.7cm cystic lesion at 10 o'clock and an area of focal shadowing at 11-12 o'clock post trauma. No abnormal axillary nodes. Multiple cystic areas seen. Scanned 9-12 o'clock. Biopsy of the shadowing area recommended to exclude neoplasm. These results were verbally communicated with the patient and result sheet given to the patient on 01/09/22. ASSESSMENT: Suspicious, BI-RAD 4 RECOMMENDATION: Stereotactic core biopsy of the left breast. (of the new calcifications) Ultrasound core biopsy of the left breast. (of the dense shadowing, completion breast ultrasound on day of biopsy to assess remainder of the breast) Called office with mammographic findings and has scheduled an appointment for the patient for 02/20/22 at 10:[address] Ball. Biopsy scheduled for 02/10/22 at 9:30. PRELIMINARY REPORT CALLED AND FAXED TO DR. BALL ON 01/09/22.
== END | disposition home or self-care (01) ==
LOC: RADMAMWWP 08:16
PROVIDERS: ATTEND Surgery
DX: R92.8 Other abnormal and inconclusive findings on diagnostic imaging of breast (principal); Z78.0 Asymptomatic menopausal state
CPT/HCPCS: 77062; 77066

== ENCOUNTER → 2022-02-10 | Day surgery (SDC) | payer MEDICAID ==
--- NOTE | 2022-02-10 12:23 | USB ---
EXAMINATION TYPE: US biopsy breast VAD LT DATE OF EXAM: 02/10/2022 CLINICAL HISTORY: R92.8 abnormal mammogram. TECHNIQUE: Ultrasound guided core biopsy of 11-12 o'clock left breast. COMPARISON: NONE FINDINGS: The procedure of ultrasound guided core biopsy was explained to the patient. Benefits, alt ernatives, and risks were discussed. An informed consent was then obtained. The patient was placed in supine positioning for imaging and for the procedure. The overlying skin w as prepped and draped in usual sterile fashion. Lidocaine buffered with bicarbonate was used as anes thetic into the skin and subcutaneous tissue up to area of concern in the 11-12 o'clock left . Under ultrasound guidance, a 12-gauge vacuum assisted biopsy gun device was used to obtain 4 core michael ples. Following this, a biopsy clip was left in lesion. The patient tolerated the procedure well without any immediate complication. The patient was kept in the radiology department for short stay after the procedure and then discharged home in stable condi tion. IMPRESSION: Successful, uncomplicated ultrasound guided core biopsy of area of concern in the 11-12 o 'clock left , full pathology results to follow.
== END | disposition home or self-care (01) ==
LOC: RADUSWWP 09:28
PROVIDERS: ATTEND Surgery
DX: N60.32 Fibrosclerosis of left breast (principal); N64.1 Fat necrosis of breast
CPT/HCPCS: 88305; 19083; A4648; J2001

== ENCOUNTER → 2022-02-10 | Day surgery (SDC) | payer MEDICAID ==
[2022-02-10 10:01] VITALS: RESP 18; TEMP 98.7
[2022-02-10 11:10] VITALS: BP 101/66; PULSE 67
--- NOTE | 2022-02-10 12:28 | MM ---
Stereotactic Mammotome core biopsy left breast. HISTORY: Left breast microcalcifications. The calcifications in question within the left breast were targeted by the undersigned. Procedure wa s performed by the undersigned. Informed consent was obtained and all of the patients questions were answered. The standard sterile technique was utilized and appropriate local anesthesia was obtained with 1% licocaine. Mammotome probe was advanced and multiple core samples were obtained and sent to pathology for interpretation. Microclip marker was deployed at the site of biopsy. Post procedural mammogram demonstrates appropriate deployment of radiopaque clip marker. The patient tolerated the p rocedure well and left the department in stable condition. Pathology results are pending. IMPRESSION: Successful stereotactic core biopsy left breast with pathology results pending.
== END | disposition home or self-care (01) ==
LOC: RADMAMWWP 09:26
PROVIDERS: ATTEND Surgery
DX: R92.0 Mammographic microcalcification found on diagnostic imaging of breast (principal)
CPT/HCPCS: 19081; A4648

== ENCOUNTER → 2022-09-06 | Outpatient (CLI) | payer MEDICAID ==
[2022-09-06 16:33] LABS: Basophils # (A) 0.08 X 10*3/uL (0.00-0.10); Eosinophils # (A) 0.31 X 10*3/uL (0.04-0.35); Eosinophils % (A) 3.8 %; HCT 43.3 % (37.2-46.3); HGB 13.5 g/dL (12.0-15.0); Immature Grans, Automated 0.2 %; Lymphocytes # (A) 3.02 X 10*3/uL (0.90-5.00); Lymphocytes % (A) 37.1 %; MCH 28.2 pg (27.0-32.0); MCHC 31.2 g/dL (32.0-37.0); MCV 90.4 fL (80.0-97.0); Monocytes # (A) 0.65 X 10*3/uL (0.20-1.00); NRBC Per 100 WBC 0 /100 WBCS (0.0-0.0); Neutrophils # (A) 4.07 X 10*3/uL (1.80-7.70); Neutrophils % (A) 49.9 %; Platelet Count 481 X 10*3/uL (140-440); RBC 4.79 X 10*6/uL (4.10-5.20); RDW 13.2 % (11.5-14.5); WBC 8.15 X 10*3/uL (4.50-10.00)
[2022-09-06 17:07] LABS: ALT 23 U/L (8-44); AST 21 U/L (13-35); African American GFR (CKD) 109.1 (60.0-200.0); Albumin 4.2 g/dL (3.8-4.9); Albumin/Globulin Ratio 1.68 (1.60-3.17); Alkaline Phosphatase 70 U/L (41-126); BUN/Creat Ratio 19.97 Ratio (12.00-20.00); Blood Urea Nitrogen 12.3 mg/dL (9.0-27.0); Calcium 9.3 mg/dL (8.7-10.3); Chloride 104 mmol/L (96-109); Chol/HDL Ratio 2.73 Ratio; Globulin 2.5 g/dL (1.6-3.3); Glucose 96 mg/dL (70-110); LDL Cholesterol,Calculated 70.8 mg/dL (0.0-131.0); Non-African American GFR(CKD) 94.2 (60.0-200.0); Potassium 4.7 mmol/L (3.5-5.5); Sodium 141 mmol/L (135-145); Total Protein 6.6 g/dL (6.2-8.2)
== END | disposition home or self-care (01) ==
LOC: LABWHC1 08:52
PROVIDERS: ATTEND Internal Medicine
DX: Z00.00 Encounter for general adult medical examination without abnormal findings (principal)
CPT/HCPCS: 36415; 80053; 80061; 82306; 84439; 84443; 85025

== ENCOUNTER → 2022-09-23 | Outpatient (CLI) | payer MEDICAID ==
--- NOTE | 2022-09-23 15:53 | MM ---
Reason for Exam: Follow-up at short interval from prior study. Last screening mammogram was performed 8 month(s) ago. Patient History: Menarche at age 17. First Full-Term at age 21. Postmenopausal. Hormonal Contraceptives for 5 years from age 24 until age 29. 02/10/2022, Benign Core Biopsy on the left side. 02/10/2022, Benign Core Biopsy on the left side. 09/22/2012, Benign Core Biopsy on the right side. Risk Values: Yancy 5 year model risk: 2.1%. NCI Lifetime model risk: 7.3%. Prior Study Comparison: 01/16/2020 Bilateral Screening Mammogram, [facility]. 01/25/2021 Bilateral Screening Mammogram, [facility]. 01/09/2022 Bilateral Diagnostic Mammogram, [facility]. Tissue Density: Left: The breast tissue is heterogeneously dense. This may lower the sensitivity of mammography. Findings: Analyzed By CAD. Increase architectural distortion within the central anterior/retroareolar region of the left breast with increase in grouped course heterogenous calcifications. There is a biopsy clip demonstrated centrally within this area of previous stereotactic biopsy. Additional biopsy clip demonstrated within stable nodularity in the central posterior right breast. Chronic nodularity within the lower inner left breast. Overall Assessment: Suspicious, BI-RAD 4 Management: Stereotactic Core Biopsy of the left breast. A clinical breast exam by your physician is recommended on an annual basis and results should be correlated with mammographic findings. This exam should not preclude additional follow-up of suspicious palpable abnormalities. Results were given to the patient verbally at the time of exam. Electronically signed and approved by: Jaspreet Fulton D.O.
== END | disposition home or self-care (01) ==
LOC: RADMAMWWP 14:56
PROVIDERS: ATTEND Internal Medicine
DX: R92.8 Other abnormal and inconclusive findings on diagnostic imaging of breast (principal)
CPT/HCPCS: 77061; 77065

== ENCOUNTER → 2022-10-09 | Day surgery (SDC) | payer MEDICAID ==
[2022-10-09 10:08] VITALS: RESP 16
[2022-10-09 10:59] VITALS: BP 129/75; PULSE 78; TEMP 98.1
--- NOTE | 2022-10-13 14:47 | MM ---
Risk Values: Yancy 5 year model risk: 2.1%. NCI Lifetime model risk: 7.3%. Prior Study Comparison: 01/25/2021 Bilateral Screening Mammogram, [facility]. 01/09/2022 Bilateral Diagnostic Mammogram, [facility]. 09/23/2022 Left MG 3D diag mammo w/cad LT, [facility]. Pathology Description: Location: central. Approach: CC FB Needle Type: Eviva Cores: 6 Skin Nicks: 1 Gauge: 9 The procedure of stereotactic guided core biopsy was explained to the patient. Benefits, alternatives, and risks were discussed. An informed consent was then obtained. The shortness pathway for biopsy was chosen. Shortness pathway was inferior approach. Targeting and procedure were performed by radiology. Performed the remainder of the procedure. A vacuum assisted biopsy gun was used to obtain 6 core samples. The patient tolerated the procedure well without any immediate complication. The patient was kept in the radiology department for short stay after the procedure and then discharged home in stable condition. Targeted calcifications are identified in specimen mammogram. Post biopsy mammogram shows the clip to appear in satisfactory position relative to the targeted area of concern on the preprocedure images. Impression: 1. Successful stereotactic core biopsy left breast. Pathology Results: Result: Benign, Fat necrosis. LEFT BREAST, STEREOTACTIC NEEDLE CORE BIOPSY: Scar/fat necrosis with calcifications, chronic inflammation and hemosiderin laden histiocytes. Background fibrocystic changes with rare microcalcifications. Negative for malignancy. Overall Assessment: Benign Management: Diagnostic Mammogram of the left breast in 6 months. Electronically signed and approved by: Isidoro Santiago D.O. Radiologis
== END ==
LOC: RADMAMWWP 09:49
PROVIDERS: ATTEND Surgery
DX: N61.0 Mastitis without abscess (principal); R92.8 Other abnormal and inconclusive findings on diagnostic imaging of breast; R92.1 Mammographic calcification found on diagnostic imaging of breast
CPT/HCPCS: 88305; 19081; A4648; J2001

== ENCOUNTER → 2022-12-17 | Outpatient (CLI) | payer MEDICARE ==
--- NOTE | 2022-12-17 09:38 | MM ---
Reason for Exam: Clinical finding. Last screening mammogram was performed 11 month(s) ago. Indicated Problems: Lump or thickening of the right side. Patient History: Menarche at age 17. First Full-Term at age 21. Postmenopausal. Hormonal Contraceptives for 5 years from age 24 until age 29. 10/09/2022, Benign MG stereo VAD BX LT on the left side. 02/10/2022, Benign Core Biopsy on the left side. 02/10/2022, Benign Core Biopsy on the left side. 09/22/2012, Benign Core Biopsy on the right side. Risk Values: Yancy 5 year model risk: 2.1%. NCI Lifetime model risk: 7.3%. Prior Study Comparison: 01/25/2021 Bilateral Screening Mammogram, [facility]. 01/09/2022 Bilateral Diagnostic Mammogram, [facility]. 09/23/2022 Left MG 3D diag mammo w/cad LT, [facility]. Tissue Density: Right: There are scattered fibroglandular densities. Findings: Analyzed By CAD. No suspicious masses, calcifications or distortions. Bilateral biopsy clips. Overall Assessment: Benign, BI-RAD 2 Management: Screening Mammogram of both breasts in 1 year. A clinical breast exam by your physician is recommended on an annual basis and results should be correlated with mammographic findings. This exam should not preclude additional follow-up of suspicious palpable abnormalities. Results were given to the patient verbally at the time of exam. Electronically signed and approved by: Brandon Kauffman DO
== END | disposition home or self-care (01) ==
LOC: RADMAMWWP 08:58
PROVIDERS: ATTEND Internal Medicine
DX: N63.10 Unspecified lump in the right breast, unspecified quadrant (principal); Z78.0 Asymptomatic menopausal state; Z98.890 Other specified postprocedural states
CPT/HCPCS: 77065; G0279; 77061

== ENCOUNTER → 2022-12-18 | Outpatient (CLI) | payer MEDICARE ==
[2022-12-18 07:19] LABS: African American GFR (CKD) >90 (>60 ml/min/1.73 sqM); Blood Urea Nitrogen 19 mg/dL (7-17); Non-African American GFR(CKD) >90 (>60 ml/min/1.73 sqM)
--- NOTE | 2022-12-18 11:52 | CT ---
EXAMINATION TYPE: CT neck chest w con DATE OF EXAM: 12/18/2022 8:01 AM COMPARISON: CT 07/29/2020 HISTORY: Enlarged lymph nodes CT DLP: 1162 mGycm Automated exposure control for dose reduction was used. CONTRAST: CT scan of the neck is performed following with IV Contrast, patient injected with 100 ml mL of Isovu e 300. Axial images are obtained, coronal and sagittal reformatted images are reviewed. FINDINGS: Brain: Visualized portions are grossly unremarkable. Orbits: Unremarkable Sinuses: Grossly unremarkable. Spaces of the neck: Clear and symmetric. Musculoskeletal: No acute osseous pathology. Lymph nodes: Multiple nonenlarged lymph nodes are seen along both anterior chains of the neck. Vascular structures: Visualized major arteries are patent without evidence of aneurysm. Soft tissues/Thyroid: Thyroid and remainder of the soft tissues are unremarkable. Lungs/ Pleura: Scattered air cysts are seen throughout the parenchyma. The lungs are clear without ev idence of focal consolidation, pneumothorax or pleural effusion.7 Airway: Patent And Unremarkable. Heart: Size Within Normal Limits. Mediastinum: No Gross Evidence Of Adenopathy. Vasculature: No Aortic Aneurysm. Scattered minimal atherosclerosis of the arterial vasculature. Musculoskeletal: No Acute Osseous Abnormalities Soft Tissues/Lymph Nodes: Unremarkable. Lower Neck: No Significant Findings. Upper Abdomen: No Significant Findings. IMPRESSION: No evidence of lymphadenopathy within the neck or chest. No evidence for acute process.
== END | disposition home or self-care (01) ==
LOC: RADCTMAIN 06:29
PROVIDERS: ATTEND Internal Medicine
DX: R59.0 Localized enlarged lymph nodes (principal)
CPT/HCPCS: 82565; 84520; 70491; 71260; 36415; Q9967

== ENCOUNTER 2022-12-23 12:47 | Day surgery (SDC) | payer MEDICARE ==
[2022-12-23 14:52] VITALS: BP 139/83; PULSE 79; RESP 16; TEMP 97.9
--- NOTE | 2022-12-23 14:53 | US ---
EXAMINATION TYPE: US discontinued FNA panel DATE OF EXAM: 12/23/2022 COMPARISON: CT neck 12/18/2022 CLINICAL HISTORY: R59.0 enlarged lymph node. Patient states redness and swelling of the right clavicu lar region approximately 10 days prior. This has mostly resolved, but still feels a residual bump. TECHNIQUE: Multiple grayscale and color Doppler sonographic images of the right neck was performed a round the palpable finding. FINDINGS: There is a very subtle palpable nodule just cephalad and superficial to the clavicle. Ultr asound shows what appears to be a 5 mm lymph node. IMPRESSION: 5 mm right supraclavicular lymph node. As the clinical swelling and redness has almost c ompletely resolved, the finding is not particularly worrisome and no biopsy was performed. Can reasse ss if worsens.
== END 2022-12-23 14:45 | disposition home or self-care (01) ==
LOC: RADPROMAIN 12:47
PROVIDERS: ATTEND Internal Medicine
DX: R59.0 Localized enlarged lymph nodes (principal)
CPT/HCPCS: 76536

== ENCOUNTER → 2023-12-25 | Outpatient (CLI) | payer MEDICARE ==
--- NOTE | 2023-12-28 09:26 | MM ---
Reason for Exam: Screening (asymptomatic). Last mammogram was performed 1 year(s) and 11 month(s) ago. Patient History: Menarche at age 17. First Full-Term at age 21. Postmenopausal. Hormonal Contraceptives for 5 years from age 24 until age 29. 10/09/2022, Benign MG stereo VAD BX LT on the left side. 02/10/2022, Benign Core Biopsy on the left side. 02/10/2022, Benign Core Biopsy on the left side. 09/22/2012, Benign Core Biopsy on the right side. Risk Values: Yancy 5 year model risk: 2.1%. NCI Lifetime model risk: 7.1%. Prior Study Comparison: 01/09/2022 Bilateral Diagnostic Mammogram, [facility]. 09/23/2022 Left MG 3D diag mammo w/cad LT, [facility]. 12/17/2022 Right MG 3D diag mammo w/cad RT, [facility]. Tissue Density: The breast tissue is heterogeneously dense. This may lower the sensitivity of mammography. Findings: Analyzed By CAD. Postoperative changes left breast with diffuse dystrophic calcifications noted. No suspicious calcifications seen. No masses noted. Overall Assessment: Benign, BI-RAD 2 Management: Screening Mammogram of both breasts in 1 year. . Patient should continue monthly self-breast exams. A clinical breast exam by your physician is recommended on an annual basis. This exam should not preclude additional follow-up of suspicious palpable abnormalities. Note on Yancy scores and lifetime risk: 1. A Yancy score greater than 3% is considered moderate risk. If this is the case, consider specialist referral to assess eligibility for a risk reducing agent. 2. If overall lifetime risk for the development of breast cancer is 20% or higher, the patient may qualify for future screening with alternating mammogram and breast MRI. Electronically signed and approved by: Jhonny Kilgore M.D. Radiologis
== END | disposition home or self-care (01) ==
LOC: RADMAMWWP 10:08
PROVIDERS: ATTEND Internal Medicine
DX: Z12.31 Encounter for screening mammogram for malignant neoplasm of breast (principal); Z78.0 Asymptomatic menopausal state
CPT/HCPCS: 77063; 77067

== ENCOUNTER → 2023-12-26 | Outpatient (CLI) | payer MEDICARE ==
[2023-12-26 13:11] LABS: Basophils # (A) 0.11 X 10*3/uL (0.00-0.10); Eosinophils # (A) 0.53 X 10*3/uL (0.04-0.35); Eosinophils % (A) 4.8 %; HGB 13.4 g/dL (12.0-15.0); Lymphocytes # (A) 3.96 X 10*3/uL (0.90-5.00); Lymphocytes % (A) 35.8 %; MCH 28.3 pg (27.0-32.0); MCHC 31.2 g/dL (32.0-37.0); MCV 90.7 FL (80.0-97.0); Mean Platelet Volume 9.6 FL (9.5-12.2); Monocytes # (A) 0.95 X 10*3/uL (0.20-1.00); Monocytes % (A) 8.6 %; NRBC Per 100 WBC 0 X 10*3/uL (0.00-0.01); Neutrophils % (A) 49.6 %; Platelet Count 508 X 10*3/uL (140-440); RBC 4.74 X 10*6/uL (4.10-5.20); RDW 13.2 % (11.5-14.5); WBC 11.07 X 10*3/uL (4.50-10.00)
[2023-12-26 13:41] LABS: ALT 22 U/L (8-44); AST 19 U/L (13-35); Albumin 4.4 g/dL (3.8-4.9); Albumin/Globulin Ratio 1.52 Ratio (1.60-3.17); Alkaline Phosphatase 79 U/L (41-126); BUN/Creat Ratio 16.43 Ratio (12.00-20.00); Blood Urea Nitrogen 11.5 mg/dL (9.0-27.0); Calcium 9.5 mg/dL (8.7-10.3); Carbon Dioxide 26.7 mmol/L (21.6-31.8); Chloride 104 mmol/L (96-109); Chol/HDL Ratio 2.99 Ratio; Globulin 2.9 g/dL (1.6-3.3); Glucose 97 mg/dL (70-110); LDL Cholesterol,Calculated 70.8 mg/dL (0.0-131.0); Potassium 4.4 mmol/L (3.5-5.5); Sodium 142 mmol/L (135-145); T4, Free (Free Thyroxine) 1.05 ng/dL (0.80-1.80); Total Bilirubin 0.5 mg/dL (0.3-1.2); Total Protein 7.3 g/dL (6.2-8.2)
== END | disposition home or self-care (01) ==
LOC: LABWHC1 08:45
PROVIDERS: ATTEND Internal Medicine
DX: E78.5 Hyperlipidemia, unspecified (principal); E55.9 Vitamin D deficiency, unspecified
CPT/HCPCS: 36415; 80053; 80061; 82306; 84439; 84443; 85025